=== PATIENT | male | born 1950 | race Caucasian/White ===

== ENCOUNTER 2019-03-25 17:52 | Emergency (ER) | payer OTHER, BC ==
[~2019-03-25] VITALS: Ht 177.8 cm; Wt 72.6 kg
[2019-03-25] MEDS ORDERED: ALFUZOSIN HCL10 MG PO (17:58)
[2019-03-25] MEDS ORDERED: ALLOPURINOL 10100 M1 PO (17:58)
[2019-03-25 18:51] VITALS: BP 146/89
== END 2019-03-25 18:52 | disposition home or self-care (01) ==
LOC: ER 17:52
DX: S60.051A Contusion of right little finger without damage to nail, initial encounter (principal); Z87.442 Personal history of urinary calculi; Z88.2 Allergy status to sulfonamides; W23.1XXA Caught, crushed, jammed, or pinched between stationary objects, initial encounter; Y92.89 Other specified places as the place of occurrence of the external cause; Y93.89 Activity, other specified; Y99.8 Other external cause status